=== PATIENT | male | born 1965 | race Caucasian/White ===

== ENCOUNTER 2021-01-21 18:47 | Emergency (ER) | payer SELFPAY ==
[~2021-01-21] VITALS: Ht 177.8 cm; Wt 61.4 kg
[2021-01-21] MEDS ORDERED: KETOROLAC 30 MG/ML VIAL. IVP ONE (20:45)
[2021-01-21] MEDS ORDERED: IV NORMAL SALINE 1000ML BAG 1,000 ML IV ONE (20:45)
--- NOTE | 2021-01-21 20:52 | PHYS DOC ---
Past Medical History Additional Past Medical Histor: BASAL CELL FACIAL CA, HEP C ([facility]YTA M [facility]) Past Surgical History: Other Additional Past Surgical Histo: FACIAL CA SX [facility] General Adult EDM: Chief Complaint: MULTIPLE COMPLAINTS HPI: HPI: Patient is a 55 year old male who presents with 1 day of body aches, fever, slight cough. He is also complaining the last couple months he has had 2 bilateral inguinal hernias that are becoming more painful. He states when he lays down flat they will usually go back in. He denies abdominal pain, nausea, vomiting, diarrhea, constipation, chest pain, shortness of breath, dizziness, syncope, focal weakness, numbness or tingling. He has a history of basal cell cancer of the face with surgical removal and ear tubes. Patient currently rates his discomfort at a 7 out of 10. ([facility] Review of Systems: Review of Systems: Constitutional: Denies fever or chills. [] Eyes: Denies change in visual acuity. [] HENT: Denies nasal congestion or sore throat. [] Respiratory: Denies cough or shortness of breath. [] Cardiovascular: Denies chest pain or edema. [] GI: Denies abdominal pain, nausea, vomiting, bloody stools or diarrhea. [] : Denies dysuria. [] Musculoskeletal: Denies back pain or joint pain. [] Integument: Denies rash. [] Neurologic: Denies headache, focal weakness or sensory changes. [] Endocrine: Denies polyuria or polydipsia. [] Lymphatic: Denies swollen glands. [] Psychiatric: Denies depression or anxiety. [] ([facility]TA ZARATE [facility]) Heart Score: C/O Chest Pain: No HEART Score for Chest Pain: HEART Score for Chest Pain Response (Comments) Value History Slighlty/Non-Suspicious 0 ECG Nonspecific Repolarizatio 1 Age >45 - < 65 1 Risk Factors 1 or 2 Risk Factors 1 Troponin < Normal Limit 0 Total 3 Risk Factors: Risk Factors: DM, Current or recent (<one month) smoker, HTN, HLP, family history of CAD, obesity. Risk Scores: Score 0 - 3: 2.5% MACE over next 6 weeks - Discharge Home Score 4 - 6: 20.3% MACE over next 6 weeks - Admit for Clinical Observation Score 7 - 10: 72.7% MACE over next 6 weeks - Early Invasive Strategies ([facility] Current Medications: Current Medications Medications (Trade) Dose Ordered Sig/Denisha Start Time Stop Time Status Last Admin Dose Admin Ketorolac Tromethamine (Toradol 30mg Vial) 30 mg 1X ONCE 01/21/21 20:45 01/21/21 20:46 DC Sodium Chloride 1,000 ml @ 1,000 mls/hr 1X ONCE 01/21/21 20:45 01/21/21 21:44 ([facility] Allergies: Allergies: Allergies Coded Allergies Type Severity Reaction Last Updated Verified acetaminophen Allergy Intermediate ITCHY, NAUSEA 01/21/21 Yes propoxyphene Allergy Intermediate ITCHY, NAUSEA 01/21/21 Yes ([facility] Physical Exam: PE: Constitutional: Well developed, well nourished, no acute distress, non-toxic appearance. [] HENT: Normocephalic, atraumatic, bilateral external ears normal, oropharynx mo ist, no oral exudates, nose normal. [] Eyes: PERRLA, EOMI, conjunctiva normal, no discharge. [] Neck: Normal range of motion, no tenderness, supple, no stridor. [] Cardiovascular:Heart rate regular rhythm, no murmur [] Lungs & Thorax: Bilateral breath sounds clear to auscultation [] Abdomen: Bowel sounds normal, soft, no tenderness, no masses, no pulsatile masses. [] Skin: Warm, dry, no erythema, no rash. [] Back: No tenderness, no CVA tenderness. [] Extremities: No tenderness, no cyanosis, no clubbing, ROM intact, no edema. [] Neurologic: Alert and oriented X 3, normal motor function, normal sensory function, no focal deficits noted. [] Psychologic: Affect normal, judgement normal, mood normal. [] ([facility] Current Patient Data: Vital Signs: Vital Signs Date Time Temp Pulse Resp B/P (MAP) Pulse Ox O2 Delivery O2 Flow Rate FiO2 01/21/21 19:03 99.9 106 16 123/78 98 Room Air 99.9 [facility] EKG: EK and read by Dr. Lew is sinus rhythm and no STEMI (EDYTA ZARATE APRN) Radiology/Procedures: Radiology/Procedures: [] Impression: [facility] [address] [place] [address] IMAGING REPORT Signed PATIENT: KATHY LOPEZ ACCOUNT: [id number] : 1965 LOCATION: ER AGE: 55 SEX: M EXAM STATUS: REG ER ORD. PHYSICIAN: EDYTA ZARATE APRN REASON: cough PROCEDURE: PORTABLE CHEST 1V Exam: Chest one view INDICATION: Cough TECHNIQUE: Frontal view of the chest Comparisons: None FINDINGS: The cardiomediastinal silhouette and pulmonary vessels are within normal limits. The lung and pleural spaces are clear. IMPRESSION: No acute cardiopulmonary process. Electronically signed by: Phylicia Betancourt MD (01/21/2021 8:50 PM) [facility] DICTATED and SIGNED BY: PHYLICIA BETANCOURT MD DATE: 01/21/[id number] 0 (EDYTA ZARATE APRN) Radiology/Procedures: PROCEDURE: CT ABD PELV W/ IV CONTRST ONLY Exam: CT of abdomen and pelvis with contrast INDICATION: Bilateral inguinal hernia TECHNIQUE: Sequential axial images through the abdomen and pelvis obtained following the administration of 75 mL of Omni 300 IV contrast. Sagittal and coronal reformatted images were reconstructed from the axial data and reviewed. Exposure: One or more of the following in the visualized dose reduction john hniques were utilized for this examination: 1. Automated exposure control 2. Adjustment of the MA and/or KV according to patient size 3. Use of iterative of reconstructive technique Comparisons: None FINDINGS: Heart size is normal. No pericardial effusion. Visualized lung bases pleural effusion. Liver, spleen, pancreas, gallbladder and adrenals are unremarkable. No perinephric inflammation or hydronephrosis. No renal or ureteral calculi are identified. Bladder is decompressed not well evaluated. Prostate is not enlarged. Large and small bowel are unremarkable. Appendix is normal. Large amount stool noted in the ascending colon. No free intra-abdominal air or fluid. No obstruction. Abdominal aorta has a normal course and caliber. Abdominal vasculature is patent. No enlarged intra-abdominal lymph nodes are identified. No suspicious osseous lesions or acute fractures. Small fat-containing left inguinal hernia. IMPRESSION: 1. Small fat-containing left inguinal hernia. 2. Moderate amount stool noted in the ascending colon may relate to constipation. Electronically signed by: Phylicia Betancourt MD (01/21/2021 11:31 PM) [facility] (KATHY LEW DO) Course & Med Decision Making: Course & Med Decision Making Pertinent Labs and Imaging studies reviewed. (See chart for details) COVID-19 CRITERIA: The patient was evaluated during the global COVID-19 pandemic, and that diagnosis was suspected/considered upon their initial presentation. Their evaluation, treatment and testing was consistent with current guidelines for patients who present with complaints or symptoms that may be related to COVID-19. See HPI. Alert and oriented x4. Ambulatory with steady gait. Speaks in full clear sentences. Abdomen is soft and nontender. Both hernias are soft and nontender. Skin pink warm and dry. Low-grade fever present. Lungs are clear all station all lobes. [] (EDYTA ZARATE APRN) Dragon Disclaimer: [employer] Disclaimer: This electronic medical record was generated, in whole or in part, using a voice recognition dictation system. (EDYTA ZARATE APRN) COVID-19 Patient Risks: Age 65 or older: No Sign of co-morbidity: No Exp to person + for COVID: No Exp to PUI: No Travel from affected area: No Lower respiratory symptoms: Yes Fever: Yes Other: Yes (body aches,) (EDYTA ZARATE APRN) PPE Use: Full PPE with N95 mask or PAPR: Yes (EDYTA ZARATE APRN) Departure Departure Impression: Primary Impression: Viral syndrome Additional Impressions: Inguinal hernia Qualified Codes: K40.90 - Unilateral inguinal hernia, without obstruction or gangrene, not specified as recurrent Constipation Qualified Codes: K59.00 - Constipation, unspecified Disposition: HOME / SELF CARE / HOMELESS Condition: STABLE Referrals: NO PCP (PCP) LESLYE KILPATRICK MD Patient Instructions: Constipation, Adult, [id number], Inguinal Hernia, Adult, Viral Syndrome Additional Instructions: Increase fluid hydration. Take over the counter Tylenol and/or Ibuprofen for pain or for fever. May also use over the counter cold and cough remedies Scripts Magnesium Citrate (MAGNESIUM CITRATE) 296 Ml Solution 296 ML PO ONCE for Constipation, #296 ML Prov: KATHY LEW DO 01/22/21 Sennosides/Docusate Sodium (Colace 2-in-1 Tablet) 1 Each Tablet 1 TAB PO BID, #20 TAB 0 Refills Prov: KATHY LEW DO 01/22/21 Attending Signature Attending Signature I have reviewed the PA/POWER GENERATION TECHNICIAN's note and plan of care. I was available for consultation as needed during the patient's visit in the emergency department. I agree with the clinical impression, plan, and disposition. (KATHY LEW DO) EDYTA ZARATE APRN Jan 21, 2021 20:51 KATHY LEW DO Jan 22, 2021 00:32
[2021-01-21 22:39] LABS: BASO # 0.1 x10^3/uL (0.0-0.2); BASO % 1 % (0-3); EOS # 0.1 x10^3/uL (0.0-0.7); EOS % 1 % (0-3); HEMATOCRIT 47.1 % (39.0-53.0); HEMOGLOBIN 16.5 g/dL (13.0-17.5); LYMPH # 1.2 x10^3/uL (1.0-4.8); LYMPH % 21 % (24-48); MEAN CORPUSCULAR HEMOGLOBIN 32 pg (25-35); MEAN CORPUSCULAR HGB CONC 35 g/dL (31-37); MEAN CORPUSCULAR VOLUME 90 fL (79-100); MONO # 1.1 x10^3/uL (0.0-1.1); MONO % 18 % (0-9); NEUT # 3.3 x10^3/uL (1.8-7.7); NEUT % 59 % (31-73); PLATELET COUNT 177 x10^3/uL (140-400); RED BLOOD COUNT 5.23 x10^6/uL (4.30-5.70); RED CELL DISTRIBUTION WIDTH 12.6 % (11.5-14.5); WHITE BLOOD COUNT 5.7 x10^3/uL (4.0-11.0)
[2021-01-21 22:50] LABS: CALCIUM 9.4 mg/dL (8.5-10.1); CREATININE 0.9 mg/dL (0.7-1.3); GFR 87.6
[2021-01-21 23:05] LABS: ALBUMIN 3.5 g/dL (3.4-5.0); ALBUMIN/GLOBULIN RATIO 0.9 (1.0-1.7); TOTAL BILIRUBIN 0.5 mg/dL (0.2-1.0); TOTAL PROTEIN 7.5 g/dL (6.4-8.2)
[2021-01-21] MEDS ORDERED: CONTRAST GIVEN. MC PRN (23:15)
[2021-01-21] MEDS ORDERED: IOHEXOL 300 MG/ML 100ML VIAL. IV ONE (23:15)
--- NOTE | 2021-01-21 23:33 | RAD ---
Exam: CT of abdomen and pelvis with contrast INDICATION: Bilateral inguinal hernia TECHNIQUE: Sequential axial images through the abdomen and pelvis obtained following the administrati on of 75 mL of Omni 300 IV contrast. Sagittal and coronal reformatted images were reconstructed from the axial data and reviewed. Exposure: One or more of the following in the visualized dose reduction techniques were utilized for this examination: 1. Automated exposure control 2. Adjustment of the MA and/or KV according to patient size 3. Use of iterative of reconstructive technique Comparisons: None FINDINGS: Heart size is normal. No pericardial effusion. Visualized lung bases pleural effusion. Liver, spleen, pancreas, gallbladder and adrenals are unremarkable. No perinephric inflammation or hydronephrosis. No renal or ureteral calculi are identified. Bladder is decompressed not well evaluated. Prostate is not enlarged. Large and small bowel are unremarkable. Appendix is normal. Large amount stool noted in the ascending colon. No free intra-abdominal air or fluid. No obstruction. Abdominal aorta has a normal course and caliber. Abdominal vasculature is patent. No enlarged intra-abdominal lymph nodes are identified. No suspicious osseous lesions or acute fractures. Small fat-containing left inguinal hernia. IMPRESSION: 1. Small fat-containing left inguinal hernia. 2. Moderate amount stool noted in the ascending colon may relate to constipation. Electronically signed by: Phylicia Jj MD (01/21/2021 11:31 PM) [facility]
[2021-01-22 00:05] LABS: CLARITY,URINE CLEAR; COLOR,URINE AMBER
[2021-01-22 00:06] LABS: BILIRUBIN,URINE MODERATE (NEG); NITRITE,URINE NEGATIVE (NEG); PH,URINE 5.5 (<5.0-8.0); PROTEIN,URINE 30 mg/dL (NEG-TRACE)
[2021-01-22 00:07] LABS: BACTERIA,URINE 0 /HPF (0-FEW); RBC,URINE 0 /HPF (0-2); WBC,URINE 0 /HPF (0-4)
[2021-01-22 00:19] VITALS: BP 102/60
[2021-01-22] MEDS ORDERED: SENN-121 PO (00:32)
[2021-01-22] MEDS ORDERED: MAGN296S68 PO (00:32)
[2021-01-22 04:39] LABS: % BANDS 2 % (0-9); % EOS 2 % (0-5); % LYMPHS 26 % (24-48); % MONOS 18 % (0-10); % SEGS 52 % (35-66); PLT ESTIMATE ADEQUATE (ADEQUATE); TOXIC VACUOLATION SLIGHT
--- NOTE | 2021-01-22 14:55 | EKG ---
[facility] [address] [place] [address] Test Date: 2021-01-21 Test Time: 21:33:52 Pat Name: KATHY LOPEZ Department: Room: Gender: M [employer]: : 1965 Requested By: EDYTA ZARATE Order Number: [id number] Reading MD: Measurements Intervals [place] Rate: 90 P: 44 NE: 154 QRS: 77 QRSD: 94 T: 65 QT: 344 QTc: 425 Interpretive Statements SINUS RHYTHM QRS(T) CONTOUR ABNORMALITY CONSISTENT WITH SEPTAL INFARCT AGE UNDETERMINED ABNORMAL ECG RI6.02 No previous ECG available for comparison
--- NOTE | 2021-01-24 12:33 | NUR ---
IP: Informed pt of positive covid test and the need to quarantine for 10 days. Pt verbalized understanding.
== END 2021-01-22 01:00 | disposition home or self-care (01) ==
LOC: ER 18:47
DX: U07.1 COVID-19 (principal); K40.20 Bilateral inguinal hernia, without obstruction or gangrene, not specified as recurrent; B34.9 Viral infection, unspecified; K59.00 Constipation, unspecified; Z88.8 Allergy status to other drugs, medicaments and biological substances
CPT/HCPCS: 36415; 71045; 74177; 80053; 81001; 83605; 85007; 85025; 87040; 87070; 87426; 87880; 93005; 96361; 96374; 99285; J1885; J7030; Q9967; U0003; U0005

== ENCOUNTER 2021-03-13 18:08 | Emergency (ER) | payer SELFPAY ==
[~2021-03-13] VITALS: Ht 177.8 cm; Wt 70.4 kg
[~2021-03-13 18:08] MED LIST: MAGN296S68 PO; SENN-121 PO
--- NOTE | 2021-03-13 21:03 | PHYS DOC ---
Past Medical History Additional Past Medical Histor: BASAL CELL FACIAL CA, HEP C Past Surgical History: Other Additional Past Surgical Histo: FACIAL CA SX Smoking Status: Current Every Day Smoker Alcohol Use: Occasionally General Adult EDM: Chief Complaint: DENTAL PROBLEM Problems: (1) Pain, dental HPI: HPI: Patient is a 55 year old male who presents with right-sided dental pain since yesterday at 2200. Patient states he did not sleep much secondary to his pain, which radiates to his right ear and up towards his nose on the right side. Patient states he is taken Tylenol all day today at home without symptom relief. Patient states he recently started a new job, but does not able to set up his health insurance for a couple of months. Patient denies having similar symptoms previously. He also denies having a fever or chills at home. Patient has no other complaints at this time. Review of Systems: Review of Systems: ROS negative except as mentioned in HPI. Heart Score: C/O Chest Pain: No Current Medications: Current Medications Medications (Trade) Dose Ordered Sig/Denisha Start Time Stop Time Status Last Admin Dose Admin Amoxicillin (Amoxil) 1,000 mg 1X ONCE 03/13/21 21:00 03/13/21 21:01 UNV Tramadol HCl (Ultram) 50 mg 1X ONCE 03/13/21 21:00 03/13/21 21:01 UNV Allergies: Allergies: Allergies Coded Allergies Type Severity Reaction Last Updated Verified acetaminophen Allergy Intermediate ITCHY, NAUSEA 01/21/21 Yes propoxyphene Allergy Intermediate ITCHY, NAUSEA 01/21/21 Yes Physical Exam: PE: Constitutional: Patient has a grimace secondary to pain. Well developed, well nourished, non-toxic appearance. HENT: Normocephalic, atraumatic, bilateral external ears normal, oropharynx moist, poor dentition with several missing teeth, purulent area surrounding tooth on upper right side, nose normal. Eyes: PERRLA, EOMI, conjunctiva normal, no discharge. Neck: Normal range of motion, no tenderness, supple, no stridor. Cardiovascular: Heart rate regular rhythm, no murmur Lungs & Thorax: Bilateral breath sounds clear to auscultation Current Patient Data: Vital Signs: Vital Signs Date Time Temp Pulse Resp B/P (MAP) Pulse Ox O2 Delivery O2 Flow Rate FiO2 03/13/21 20:40 98.7 87 20 171/97 (121) 99 Room Air 98.7 Course & Med Decision Making: Course & Med Decision Making Pertinent Labs and Imaging studies reviewed. (See chart for details) Patient is aware that we cannot remove the infected tooth here in the emergency department. Right now, he is requesting antibiotic treatment as well as medication for pain control. Patient will receive p.o. tramadol and a loading dose amoxicillin here in the department, and then a prescription for a few days worth of tablets at home as well as a course of amoxicillin. Patient was made aware of return precautions regarding dental infection causing infective endocarditis. Dragon Disclaimer: [employer] Disclaimer: This electronic medical record was generated, in whole or in part, using a voice recognition dictation system. Departure Departure Impression: Primary Impression: Dental abscess Disposition: HOME / SELF CARE / HOMELESS Condition: STABLE Referrals: NO PCP (PCP) Patient Instructions: Dental Abscess Additional Instructions: Please return to the emergency department if you develop a fever, chest pain, palpitations or other chest discomfort. Scripts Tramadol Hcl (TRAMADOL HCL) 100 Mg Tbmp.24hr 100 MG PO Q4-6HRS PRN for PAIN for 5 Days, #20 TAB 0 Refills Take 1 tablet by mouth every 4-6 hours as needed for pain Prov: MARIA LUISA CHURCH 03/13/21 Amoxicillin (AMOXICILLIN) 500 Mg Capsule 500 MG PO TID for 14 Days, #42 CAP 0 Refills Take 1 capsule by mouth 3 times a day for 14 days. Prov: MARIA LUISA CHURCH 03/13/21 MARIA LUISA CHURCH Mar 13, 2021 21:03
[2021-03-13] MEDS ORDERED: traMADol 50 MG TABLET PO ONE (21:30)
[2021-03-13] MEDS ORDERED: AMOXICILLIN 250 MG CAPSULE. PO ONE (21:30)
[2021-03-13] MEDS ORDERED: TRAM100T2 PO ×2 (21:43→21:45)
[2021-03-13] MEDS ORDERED: AMOX500C PO (21:43)
[2021-03-13 22:00] VITALS: BP 143/82
== END 2021-03-13 22:00 | disposition home or self-care (01) ==
LOC: ER 18:08
DX: K04.7 Periapical abscess without sinus (principal); H92.01 Otalgia, right ear; F17.200 Nicotine dependence, unspecified, uncomplicated; Z88.6 Allergy status to analgesic agent; Z88.8 Allergy status to other drugs, medicaments and biological substances
CPT/HCPCS: 99283